=== PATIENT | female | born 1955 | race Caucasian/White ===

== ENCOUNTER → 2018-04-10 | Emergency (ER) | payer BC ==
[~2018-04-10] VITALS: Ht 162.6 cm; Wt 106.1 kg
== END | disposition home or self-care (01) ==
LOC: ER 20:07
DX: H93.8X2 Other specified disorders of left ear (principal); T16.2XXA Foreign body in left ear, initial encounter; X58.XXXA Exposure to other specified factors, initial encounter; Y93.E8 Activity, other personal hygiene; Y92.89 Other specified places as the place of occurrence of the external cause; Y99.8 Other external cause status